=== PATIENT | female | born 1950 | race Caucasian/White ===

== ENCOUNTER 2019-12-09 11:00 | Outpatient (RCR) | payer MEDICARE, OTHER, SELFPAY ==
[2019-10-02 10:58] VITALS: BMI 35.1
[2019-10-02 11:01] VITALS: BMI 35.1
[2019-12-09 11:02] VITALS: BMI 35.1
[2019-12-09 11:03] VITALS: BMI 35.1
== END 2019-12-29 23:59 | disposition home or self-care (01) ==
LOC: ANHDMC 11:00
PROVIDERS: Referring Provider Internal Medicine Cardiovascular Disease
DX: E11.65 Type 2 diabetes mellitus with hyperglycemia (principal); E66.9 Obesity, unspecified; Z71.89 Other specified counseling; Z71.3 Dietary counseling and surveillance
CPT/HCPCS: 97802; 97803; G0108

== ENCOUNTER 2020-01-15 09:15 | Outpatient (RCR) | payer MEDICARE, OTHER, SELFPAY | END 2020-01-15 16:23 | disposition home or self-care (01) | LOC: ANHDMC 09:15 | PROVIDERS: Referring Provider Internal Medicine Cardiovascular Disease; Visit Provider Nurse Practitioner | DX: E11.65 Type 2 diabetes mellitus with hyperglycemia (principal); Z71.89 Other specified counseling | CPT/HCPCS: G0108 ==

== ENCOUNTER 2020-03-16 13:00 | Outpatient (RCR) | payer MEDICARE, OTHER, SELFPAY | END 2020-03-16 13:52 | disposition home or self-care (01) | LOC: ANHDMC 13:00 | PROVIDERS: Referring Provider Internal Medicine Cardiovascular Disease; Visit Provider Nurse Practitioner | DX: E11.65 Type 2 diabetes mellitus with hyperglycemia (principal); E78.5 Hyperlipidemia, unspecified; E66.9 Obesity, unspecified; Z71.89 Other specified counseling | CPT/HCPCS: G0108 ==

== ENCOUNTER 2020-05-18 12:47 | Outpatient (CLI) | payer MEDICARE, OTHER, SELFPAY ==
--- NOTE | ~2020-05-18 | MM_ITS ---
EXAMINATION: MM screening fermin BI w jaime HISTORY: Screening mammogram TECHNIQUE: Craniocaudal and mediolateral oblique 3-D tomosynthesis images were obtained and synthetic 2-D images were generated. CAD analysis was submitted and interpreted. COMPARISON: No prior mammogram is available for comparison at this institution. BREAST PARENCHYMAL COMPOSITION: There are scattered areas of fibroglandular density. FINDINGS: There are scattered bilateral benign calcifications. There is no evidence of suspicious mas s, calcification, or architectural distortion to suggest malignancy in either breast. IMPRESSION: 1. No mammographic evidence of malignancy. 2. Recommend routine screening mammography in one year. BI-RADS Category 2: Benign finding(s). Reviewed, dictated and finalized at location B. 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
== END 2020-05-18 12:48 | disposition home or self-care (01) ==
LOC: CHSIMG 12:53
PROVIDERS: PCP Family Medicine; Visit Provider Family Medicine
DX: Z12.31 Encounter for screening mammogram for malignant neoplasm of breast (principal)
CPT/HCPCS: 77063; 77067

== ENCOUNTER 2020-11-10 16:04 | Outpatient (CLI) | payer MEDICARE, OTHER, SELFPAY ==
--- NOTE | ~2020-11-10 | XR_ITS ---
EXAMINATION: XR hand LT min 3V, XR wrist RT min 3V, XR wrist LT min 3V, XR hand RT min 3V DATE: 11/10/2020 16:35 INDICATION: 3 months of pain and swelling. TECHNIQUE: 1. Posteroanterior, ulnar deviation, oblique, and lateral views of the left wrist were obtained. 2. Dorsal palmar, oblique and lateral views of the left hand were obtained. 3. Posteroanterior, ulnar deviation, oblique, and lateral views of the right wrist were obtained. 2. Dorsal palmar, oblique and lateral views of the right hand were obtained. COMPARISON: None. FINDINGS: Alignment of the lateral hands and wrists is normal. No fracture identified. There are couple surgic al clips at the palmar aspect of the right hand at the level of the mid to distal fourth metacarpal w hich may be related to reported cyst removal. Polyarticular osteoarthritis, severe at the right and m oderate at the left first carpal metacarpal joints, mild at the right triscaphe joint and minimal at a few bilateral metacarpophalangeal and interphalangeal joints. No erosions to suggest inflammatory a rthritis. Soft tissues are unremarkable. IMPRESSION: 1. 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 Reviewed, dictated and finalized at location A. IMPRESSION: 1. 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 IMPRESSION: 1. 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 IMPRESSION: 1. 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
== END 2020-11-10 16:05 | disposition home or self-care (01) ==
LOC: ANHIMG 16:08
PROVIDERS: PCP Family Medicine; Visit Provider Plastic Surgery
DX: M79.89 Other specified soft tissue disorders (principal); M19.042 Primary osteoarthritis, left hand; M19.041 Primary osteoarthritis, right hand; M18.0 Bilateral primary osteoarthritis of first carpometacarpal joints; M19.032 Primary osteoarthritis, left wrist
CPT/HCPCS: 73110; 73130

== ENCOUNTER 2021-05-20 07:50 | Outpatient (CLI) | payer MEDICARE, OTHER, SELFPAY ==
--- NOTE | ~2021-05-20 | MM_ITS ---
EXAMINATION: MM screening fermin BI w jaime HISTORY: Screening mammogram TECHNIQUE: Craniocaudal and mediolateral oblique 3-D tomosynthesis images were obtained and synthetic 2-D images were generated. CAD analysis was submitted and interpreted. COMPARISON: 05/18/2020 BREAST PARENCHYMAL COMPOSITION: There are scattered areas of fibroglandular density. FINDINGS: Scattered benign-appearing calcifications are present. There is no evidence of suspicious m ass, calcification, or architectural distortion to suggest malignancy in either breast. There has bee n no suspicious interval change. IMPRESSION: 1. No mammographic evidence of malignancy. 2. Recommend routine screening mammography in one year. BI-RADS Category 2: Benign finding(s). Reviewed, dictated and finalized at location A. 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
== END 2021-05-20 07:51 | disposition home or self-care (01) ==
LOC: CHSIMG 07:52
PROVIDERS: PCP Family Medicine; Visit Provider Family Medicine
DX: Z12.31 Encounter for screening mammogram for malignant neoplasm of breast (principal)
CPT/HCPCS: 77063; 77067

== ENCOUNTER 2022-04-25 08:33 | Outpatient (RCR) | payer MEDICARE, OTHER, SELFPAY ==
--- NOTE | 2022-04-25 09:11 | PTOPEVAL1 ---
Assessment and note entered by Corinne Gonzalez DPT Evaluation Information Assessment Status Evaluation Diagnosis L shoulder pain, balance Onset 03/30/2022 Subjective Information Pt reports that about 6 months ago, she went to the doctor due to pain in her left shoulder with insidious onset. Pt reports increased pain when reaching behind her and hifting heavier weights. She notes pain on the lateral portion of her left shoulder. She reports occasional numbness/tingling in her hand but knows it is unrelated as she has had it in the past. She reports that pain is not constant and is achy when it happens. Sleep is unaffected. In regards to her balance, she has had about 4 falls in the last year. When remembering these falls, she notes they happened due to decrease foot clearance, especially on the R foot. She reports some minor injuries but did fall onto her face once. She reports one step to get into the house. Reports no ADs at home. She reports she is still able to do everything she needs to do at home, but is more careful. Reported Pain Level Pain Score 0: Self Report Assessment PT Clinical Summary Pt presents to PT with L shoulder pain and reports of increased unsteadiness and demonstrates decreased UE/LE strength, decreased shoulder mobility, impaired foot clearance, impaired dynamic balance, and antalgic gait. In regards to her shoulder, she presents with signs and symptoms consistent with biceps involvement or impingement syndrome. 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 She was provided with an HEP focused on improving strength, mobility, and balance within her tolerance. She will benefit from skilled PT to facilitate symptom relief, decrease risk for falls, improve the aforementioned impairments, and return to functional and recreational activities. Plan of Care Interventions Gait Training,Hot Pack/Cold Pack,Manual Therapy, Neuro Re-education,Patient/Caregiver Educati, Therapeutic Activities,Therapeutic Exercise PT Services Indicated Yes Treatment Frequency and 2x week for 12 visits Duration These treatments will address the objective and functional deficits as defined above. The patient will be advanced safely and appropriately in order for the pat
== END 2022-05-24 23:59 | disposition home or self-care (01) ==
LOC: CHSPT 08:33
PROVIDERS: Visit Provider Nurse Practitioner
DX: M25.512 Pain in left shoulder (principal); M54.10 Radiculopathy, site unspecified
CPT/HCPCS: 97014; 97110; 97112; 97140; 97161; 97530; G0283

== ENCOUNTER 2022-10-03 07:49 | Outpatient (CLI) | payer MEDICARE, OTHER, SELFPAY ==
--- NOTE | ~2022-10-03 | MM_ITS ---
EXAMINATION: MM screening fermin BI w jaime HISTORY: Screening mammogram TECHNIQUE: Craniocaudal and mediolateral oblique 3-D tomosynthesis images were obtained and synthetic 2-D images were generated. CAD analysis was submitted and interpreted. COMPARISON: 05/20/2021, 05/18/2020 BREAST PARENCHYMAL COMPOSITION: There are scattered areas of fibroglandular density. FINDINGS: Scattered benign-appearing calcifications are present. No suspicious mass, calcification, o r architectural distortion are identified in either breast to suggest malignancy. There has been no s uspicious interval change. IMPRESSION: 1. No mammographic evidence of malignancy. 2. Recommend routine screening mammography in one year. BI-RADS Category 2: Benign finding(s). Reviewed, dictated and finalized at location A.
== END 2022-10-03 07:50 | disposition home or self-care (01) ==
LOC: CHSIMG 07:51
PROVIDERS: PCP Family Medicine; Visit Provider Family Medicine
DX: Z12.31 Encounter for screening mammogram for malignant neoplasm of breast (principal)
CPT/HCPCS: 77063; 77067

== ENCOUNTER 2023-04-13 13:08 | Outpatient (RCR) | payer MEDICARE, OTHER, SELFPAY ==
[2023-04-13 13:03] VITALS: BP_SYST 90
--- NOTE | 2023-04-13 14:04 | OPREHPOC ---
Outpatient Therapy Plan of Care This is a Multidisciplinary Plan of Care that may contain components documented by all disciplines (PT, OT, and ST.) PT Problem 1 PT Problem #1 Knowledge Deficit PT Goal 1 Goal indpendent and compliant with HEP Target Visit 6 PT Problem 2 PT Problem #2 Pain PT Goal 1 Goal decrease pain at worst to 5/10 or less Target Visit 12 PT Problem 3 PT Problem #3 Impaired Range of Motion PT Goal 1 Goal 1. improve passive L shoulder flexion to 150 degrees or better 2. improve passive L shoulder abduction to 120 degrees or better 3. improve active L shoulder flexion to 145 degrees or better 4. improve active L shoulder abduction to 110 degrees or better 5. L shoulder active ER to improve to 60 degrees in 90 degrees abduction 6. L shoulder active IR to improve to 50 degrees in 90 degrees abduction Target Visit 12 PT Problem 4 PT Problem #4 Impaired Functional Mobil PT Goal 1 Goal 1. QD to display less maria a 40% functional deficits 2. functional L shoulder reach behind head to the midline middle cervical spine 3. functional L shoulder reach behind back to the midline belt line. 4. patient to lift 5lbs overhead to tall shelf with the L UE Target Visit 12
--- NOTE | 2023-04-13 14:04 | PTOPEVAL1 ---
Assessment and note entered by JT File, PT Evaluation Information Assessment Status Evaluation Diagnosis SLAP tear of the L shoulder, L RTC tear Onset 04/10/23 Subjective Information patient reports she has severe pain with certain movements of the L shoulder. she reports at times it will feel like it is coming out of socket. she reports she cannot reach behind her back. she reports she has had this for a few years. she reports it has been more flared up and recently saw a specialist. she reports she has had an MRI of the labral tear and RTC tear. she reports she did fall the day after she saw the MD. she reports she also fell the other night. she reports when she falls she gets off balance and cant correct. she reports she will feel like she catches her toes on things. she reports she does have neuropathy in her feet. Reported Pain Level Pain Score 0: Self Report Assessment PT Clinical Summary mrs. hutchins is a 72 yo woman who presents to skilled PT for evaluation and treatment of L shoulder pain. she presents with decreased L shoulder passive and active rom, L shoulder weakness, pain, and decreased ability to perform functional activities. her signs and symptoms are consistent with RTC pathology and labral damage. she would benefit from continued skilled PT to address her objective/functional deficits to return to prior level functional activity performance and quality of life. Plan of Care Interventions Electrical Stimulation,Hot Pack/Cold Pack,Manual Therapy,Neuro Re-education,Patient/Caregiver Educati,Therapeutic Activities,Therapeutic Exercise PT Services Indicated Yes Treatment Frequency and 3x weekly for 12 vists Duration These treatments will address the objective and functional deficits as defined above. The patient will be advanced safely and appropriately in order for the patient to progress towards his/her prior level of function. Additional exercises will be introduced and as well as a comprehensive home exercise program upon discharge, if needed, ?to ensure carryover of functional gains achieved in the clinic. This treatment plan has been reviewed and agreement upon by the patient.
== END 2023-04-13 20:00 | disposition home or self-care (01) ==
LOC: CHSPT 13:08
PROVIDERS: PCP Nurse Practitioner
DX: S43.432D Superior glenoid labrum lesion of left shoulder, subsequent encounter (principal); S46.012D Strain of muscle(s) and tendon(s) of the rotator cuff of left shoulder, subsequent encounter
CPT/HCPCS: 97014; 97110; 97161; G0283

== ENCOUNTER 2024-01-09 13:46 | Outpatient (CLI) | payer MEDICARE, OTHER, SELFPAY ==
--- NOTE | ~2024-01-09 | MM_ITS ---
EXAMINATION: MM screening fermin BI w jaime HISTORY: Screening TECHNIQUE: Craniocaudal and mediolateral oblique 3-D tomosynthesis images were obtained and synthetic 2-D images were generated. CAD analysis was submitted and interpreted. COMPARISON: Comparison to multiple prior studies sequentially, with oldest reviewed study dated 09/2020. BREAST PARENCHYMAL COMPOSITION: Not dense: There are scattered areas of fibroglandular density. FINDINGS: There is no evidence of suspicious mass, calcification, or architectural distortion to sugg est malignancy in either breast. There has been no suspicious interval change. IMPRESSION: 1. No mammographic evidence of malignancy. 2. Recommend routine screening mammography in one year. BI-RADS Category 1: Negative Reviewed, dictated and finalized at location B.
[2024-01-09 14:15] LABS: Hemoglobin A1C 6.4 % (<5.7)
[2024-01-09 14:36] LABS: Alanine Aminotransferase 25 U/L (14-59); Albumin Level 3.6 g/dL (3.4-5.0); Alkaline Phosphatase 99 U/L (46-116); Anion Gap 8 mmol/L (4-12); Aspartate Amino Transferase 18 U/L (15-37); Bilirubin,Total 0.4 mg/dL (0.00-1.00); Blood Urea Nitrogen 15 mg/dL (7-18); Calcium 9.7 mg/dL (8.5-10.1); Carbon Dioxide 32 mmol/L (21-32); Chloride 103 mmol/L (98-108); Cholesterol 147 mg/dL (0-200); Estimated Glomerular Filt Rate > 60; Glucose 125 mg/dL (70-99); HDL Direct 61 mg/dL (40-60); LDL Cholesterol Calculated 54 mg/dL (<130); Osmolality Calculated 297 mOsm/kg (285-295); Potassium 4.3 mmol/L (3.5-5.1); Sodium 143 mmol/L (136-145); Total Protein 7.2 g/dL (6.4-8.2); Triglycerides 160 mg/dL (0-150)
[2024-01-12 07:09] LABS: Vitamin D 25 Hydroxy 40 ng/mL (30-100)
== END 2024-01-09 13:47 | disposition home or self-care (01) ==
LOC: CHSIMG 13:48
PROVIDERS: PCP Nurse Practitioner; Visit Provider Nurse Practitioner
DX: E11.9 Type 2 diabetes mellitus without complications (principal); E78.2 Mixed hyperlipidemia; E55.9 Vitamin D deficiency, unspecified; Z12.31 Encounter for screening mammogram for malignant neoplasm of breast
CPT/HCPCS: 36415; 77063; 77067; 80053; 80061; 82043; 82306; 83036

== ENCOUNTER 2024-01-10 13:23 | Outpatient (CLI) | payer MEDICARE, SELFPAY ==
[2024-01-10 13:50] LABS: Creatinine Urine 104.75 mg/dL (40-278); MALB Creatinine Ratio 12.4 mg/g (0-30); Microalbumin Urine Random < 13.0 mg/L
== END 2024-01-10 13:24 | disposition home or self-care (01) ==
LOC: CHSLAB 13:27
PROVIDERS: PCP Nurse Practitioner; Visit Provider Nurse Practitioner
DX: E11.9 Type 2 diabetes mellitus without complications (principal); E78.2 Mixed hyperlipidemia; E55.9 Vitamin D deficiency, unspecified
CPT/HCPCS: 82043

== ENCOUNTER 2025-03-19 12:40 | Outpatient (CLI) | payer MEDICARE, OTHER, SELFPAY ==
--- NOTE | ~2025-03-19 | MM_ITS ---
EXAMINATION: MM screening [facility] w jaime HISTORY: Screening TECHNIQUE: Craniocaudal and mediolateral oblique 3-D tomosynthesis images were obtained and synthetic 2-D images were generated. CAD analysis was submitted and interpreted. COMPARISON: Comparison to multiple prior studies sequentially, with oldest reviewed study dated 05/18/2020. BREAST PARENCHYMAL COMPOSITION: Not dense: There are scattered areas of fibroglandular density. FINDINGS: There is no evidence of suspicious mass, calcification, or architectural distortion to suggest malignancy in either breast. There has been no suspicious interval change. IMPRESSION: 1. No mammographic evidence of malignancy. 2. Recommend routine screening mammography in one year. BI-RADS Category 1: Negative Reviewed, dictated and finalized at location O. WORKER
--- OUTSIDE RECORDS SUMMARY | 2025-03-19 19:36 | XMS_ITS | Clinical Summary ---
Author Organization [facility] Address [facility] [place] [address] Care Team Providers Care Justice Professor Name Role Phone Justen Berrios MD Unavailable Sharon Li MD Primary Care Provider + Allergies No known active allergies Medications metFORMIN (GLUCOPHAGE) 1,000 mg tablet 9 Active amLODIPine (NORVASC) 5 mg tablet 9 Active carvedilol (COREG) 6.25 mg tablet 9 Active zolpidem (AMBIEN) 10 mg tabletIndication s:Sleep-Onset Insomnia Take 1 tablet (10 mg total) by mouth nightly 0 9 Active valsartan-hydroc hlorothiazide (DIOVAN-HCT) 320-25 mg per tablet Take 1 tablet by mouth daily Active potassium chloride ER (KLOR-CON,K-DUR) 10 mEq CR tablet Take 1 tablet/capsule (10 mEq total) by mouth 2 (two) times a day Active atorvastatin (LIPITOR) 40 mg tablet Take 1 tablet (40 mg total) by mouth daily Active cholecalciferol (VITAMIN D-3) 1,000 unit Take 1 tablet/capsule (1,000 Units total) by mouth daily Active aspirin 81 mg tablet Take 1 tablet (81 mg total) by mouth daily Active Trulicity 1.5 mg/0.5 mL pen injector 4 Active Xiidra 5 % dropperette 4 Active mesalamine (LIALDA) 1.2 gram EC tabletIndication s:Ulcerative Colitis Take 1 tablet (1.2 g total) by mouth daily with breakfast Active semaglutide (Wegovy) 0.25 mg/0.5 mL auto-injector Inject 0.5 mL (0.25 mg total) under the skin Active docosahexaenoic acid/epa (FISH OIL ORAL) Take by mouth Active Active Problems Problem Noted Date Diagnosed Date Left atrial enlargement 03/04/2019 Coronary artery disease invo lving [place] coronary artery of [place] heart without angina pectoris 07/08/2018 Palpitations 07/08/2018 Hypertension associated with diabetes 07/08/2018 Obesity due to excess calories with serious marie rbidity 07/08/2018 Mixed diabetic hyperlipidemi a associated with type 2 diabetes mellitus (CMS/HCC) 07/08/2018 Medical History Medical History Date Comments Hypertension Hyperlipidemia Diabetes mellitus Coronary artery disease Family History Medical History Relation Name Comments No Known Problems Father Multiple sclerosis Sister Relation Name Status Comments Father Alive Sister Alive Social History Tobacco Use Types Packs/Day Years Used Date Smoking Tobacco: Never Passive Smoke Exposure: Past Tobacco Cessation:Counseling Given: Not Answered Comments Unknown Sex and Gender Information Value Date Recorded Sex Assigned at Not on file Legal Sex Female 1:58 PM PRESS FEEDER Gender Identity Not on file Sexual Orientation Not on file Last Filed Vital Signs Vital Sign Reading Time Taken Comments Blood Pressure 129/75 05/05/2024 7:32 AM PRESS FEEDER Pulse 85 05/05/2024 7:32 AM PRESS FEEDER Temperature - - Respiratory Rate 18 07/08/2018 8:31 AM PRESS FEEDER Oxygen Saturation 97% 05/05/2024 7:32 AM PRESS FEEDER Inhaled Oxygen Concentration - - Weight 117.5 kg (259 lb) 05/05/2024 7:32 AM PRESS FEEDER Height 165.1 cm (5' 5) 05/05/2024 7:32 AM PRESS FEEDER Body Mass Index 43.1 05/05/2024 7:32 AM PRESS FEEDER Plan of Treatment Health Maintenance Due Date Last Done Comments Albumin Creatinine Ratio, Urine 1950 Colon Cancer Screening-Colonoscopy 1950 Depression Screening 1950 Hemoglobin A1C 1952 Hepatitis C Screening 1950 Osteoporosis Screening-Bone Density Scan 1950 eGFR 1950 Dilated Eye Exam 1950 Foot Exam 1952 Hepatitis B Screening 1970 Pneumococcal vaccine 65+ (1 of 2 - PCV) 1971 Zoster Vaccine (2 of 3) 08/13/2012 06/18/2012 Well Visit 65+ 2017 Fall Risk Assessment 07/08/2019 07/08/2018 Breast Cancer Screening-Mammogram 12/31/2019 019, 12/30/2018 Lipid Panel 12/29/2022 12/29/2021, 12/12, 07/08/2018 Influenza Vaccine (#1) 2025 02/22/2018, 2016 DTaP/Tdap/Td Vaccine (2 - Td or Tdap) 10/04/2027 Procedures Procedure Name Priority Date/Time Associated Diagnosis Comments POCT LIPID PANEL Routine 12/29/2021 10:3 2 AM CDT Coronary artery disease involving [place] coronary artery of [place] heart without angina pectoris from Last 3 Months or Most Recently Relevant to Health Maintenance Results * POCT lipid panel (12/29/2021 10:32 AM CDT) Cholesterol, POC 142 mg/dL Comment:GLU = 123 HDL, POC 57 mg/dL Triglycerides, POC 127 mg/dL LDL Cholesterol POC 60 mg/dL Chol/HDL Ratio, POC 2.5 Non-HDL Cholesterol, POC 85 mg/dL Cholesterol Total, POC 142 mg/dL Capillary blood 12/29/2021 1 0:32 AM CDT David Kapoor MD POINT OF CARE TEST ORDER SUSAN Final Result from Last 3 Months or Most Recently Relevant to Health Maintenance Insurance MEDICARE FOR LIFE MEDICARE FOR LIFE Care Teams Justice Professor Relationship Specialty Start Date End Date Sharon Li MD [address] [place] [address] PCP - General Family Medicine 05/05/24 Justen Berrios MD [address] [place] [address] Family Medicine 06/09/19
--- OUTSIDE RECORDS SUMMARY | 2025-03-19 19:36 | XMS_ITS | Clinical Summary ---
Author Organization [facility] Address [facility] [place] [address] Care Team Providers Care Marketing Account Executive Name Role Phone Vlad Ellington MD Unavailable [phone] Sharon Li MD Primary Care Provider [phone] Allergies No known active allergies Medications hydrocodone-acet aminophen 5-325 MG tablet 03/21/2018 Active zolpidem 10 MG tablet Take 10 mg by mouth nightly. 1 03/26/2018 Active metFORMIN 1000 MG tablet Take 1,000 mg by mouth 2 (two) times daily. 03/19/2018 Active valsartan-hydroc hlorothiazide 320-25 MG tablet Take 1 tablet by mouth daily. 12/19/2017 Active KLOR-CON 10 10 MEQ Tab CR tablet Take 10 mEq by mouth 2 (two) times daily. 02/14/2018 Active amlodipine 5 MG tablet Take 10 mg by mouth daily. 03/19/2018 Active loteprednol 0.5 % ophthalmic suspension 1 drop 4 (four) times daily. Active atorvastatin 40 MG tablet Take 1 tablet (40 mg total) by mouth daily. 90 tablet 3 05/17/2018 Active carvedilol 3.125 MG tablet Take 1 tablet (3.125 mg total) by mouth 2 (two) times daily. 180 tablet 3 05/21/2018 Active Active Problems Problem Noted Date Diagnosed Date Frequent falls 11/09/2021 Left shoulder pain 11/09/2021 Hyperlipemia, mixed 08/22/2021 Radicular pain of left lower extremity Type 2 diabetes mellitus 07/08/2018 Coronary artery calcification seen on CAT scan 0 05/17/2018 Social History Tobacco Use Types Packs/Day Years Used Date Smoking Tobacco: Never Smokeless Tobacco: Never Alcohol Use Standard Drinks/Week Comments No 0 (1 standard drink = 0.6 oz pur e alcohol) AUDIT-C Answer Date Recorded Frequency of Alcohol Consumption Never 04/24/2018 Average Number of Drinks Not on file Frequency of Binge Drinking Not on file 04/13 Comments Unknown Sex and Gender Information Value Date Recorded Sex Assigned at Not on file Legal Sex Female 4:58 PM CDT Gender Identity Not on file Sexual Orientation Not on file Last Filed Vital Signs Vital Sign Reading Time Taken Comments Blood Pressure 156/66 05/17/2018 11:00 AM SURVEY TECHNOLOGIST 140/80 left arm Pulse 89 05/17/2018 11:00 AM SURVEY TECHNOLOGIST Temperature 36.8 C (98.2 F) 05/17/2018 11:00 AM SURVEY TECHNOLOGIST Respiratory Rate 18 05/17/2018 11:0 0 AM SURVEY TECHNOLOGIST Oxygen Saturation 98% 05/17/2018 11: 00 AM SURVEY TECHNOLOGIST Inhaled Oxygen Concentration - - Weight 121.5 kg (267 lb 13. 7 oz) 05/17/2018 11:00 AM SURVEY TECHNOLOGIST Height 164.5 cm (5' 4.76) 05/17/2018 1 1:00 AM SURVEY TECHNOLOGIST Body Mass Index 44.9 05/17/2018 11:00 AM SURVEY TECHNOLOGIST Plan of Treatment Health Maintenance Due Date Last Done Comments Colorectal Cancer Screening Colonoscopy (10 Years) 1952 Kidney Health Evaluation 1952 Hemoglobin A1C 1952 Diabetes: Retinopathy Eye Exam 1970 Hepatitis C 1970 Zoster Vaccines (2 of 3) 08/13/2012 06/18/2012 Pneumococcal Vaccine: 50+ Years (2 of 2 - PCV) 04/26/2016 04/26/2015 Annual Medicare Wellness Visit 2017 Dexa Scan (General) 2017 Mammogram Screening 12/30/2020 12/30/2018 Lipid Panel 12/29/2022 12/29/2021 COVID-19 Vaccine ( season) 2025 08/20/2021, 02/05/2021, 07/23/2020, Additional history exists Influenza Adult (#1) 2025 02/22/2018, 02/15/2017, 04/05/2016, Additional history exists RSV Immunization or 60+ Years (1 - 1-dose 75+ series) 2027 DTaP, Tdap and Td Vaccines (2 - Td or Tdap) 10/04/2027 10/03/2017 Hepatitis A Vaccines Aged Out No long er eligible based on patient's age to complete this topic Meningococcal B Vaccine Aged Out No l onger eligible based on patient's age to complete this topic Meningococcal Vaccine Aged Out No selena justa eligible based on patient's age to complete this topic RSV Immunizations Under 20 Months Aged Out No longer eligible based on patient's age to complete this topic Procedures Procedure Name Priority Date/Time Associated Diagnosis Comments MG SCREENING W BING RODERICK DIGI Routine 12/30/2018 6:20 AM CDT Visit for screening mammogram from Last 3 Months or Most Recently Relevant to Health Maintenance Results * MG SCREENING W BING RODERICK DIGI (12/30/2018 6:20 AM CDT) Anatomical Region Laterality Modality Breast Bilateral Mammography 12/30/2018 7:38 AM CDT Impressions 12/30/2018 7:51 AM CDT IMPRESSION: No interval features to suggest malignancy. In the absence of clinical symptoms, return for annual screening due in one year. RECOMMENDATION: Routine Screening, BILATERAL in 1 year ASSESSMENT: BI-RADS 2 - BENIGN FINDING(S) Interpreted By: Brigid Silva MD, 12/30/2018 7:38 AM Narrative 12/30/2018 7:51 AM CDT EXAMINATION: BILATERAL SCREENING MAMMOGRAPHY CLINICAL INDICATION: 68 years of age female routine screening. TECHNIQUE: Digital CC & MLO views. Tomosynthesis imaging acquisition Study read with the assistance of a computer-aided detection system. COMPARISON: Screening mammogram(s) 09/28, 12/27 TISSUE DENSITY: There are scattered areas of fibroglandular density. Presence of scattered but nodular breast tissue pattern slightly decreases mammographic sensitivity. FINDINGS: Some scattered and multiple stable focal benign morphology calcifications. Stable subcentimeter partially obscured nodules unchanged given differences in technique compared to studies dating back April 2008. Given longevity with stability, this favors findings of low malignant potential. No suspicious grouping of microcalcifications, architectural distortion, or new dominant suspicious nodule 3 dimensionally demonstrated in either breast. Justen Berrios MD MAMMO Final Result from Last 3 Months or Most Recently Relevant to Health Maintenance Insurance MEDICARE [facility] Therapeutic Monitoring Services [employer] Care Teams Marketing Account Executive Relationship Specialty Start Date End Date Sharon Li MD [address] [place] [id number] PCP - General FAMILY PRACTICE 04/30/24 Vlad Ellington MD [address] [place] [address] Consulting Physician CARDIOVASCULAR DISEASE 05/01/18
--- OUTSIDE RECORDS SUMMARY | 2025-03-19 19:36 | XMS_ITS | Patient Health Record ---
Author Organization [facility] Address [address] [place], [place] [id number] Care Team Providers Care Outdoor Emergency Care Technician Name Role Phone DANIELLE Kraus Unavailable [phone] Fran Hunter Unavailable Unavailable Reason For Referral No Information Medications Medication SIG (Take, Route, Frequency, Duration) Notes Start Date End Date Status Medrol Dosepak ORAL Medrol DosepakOr iginal MedicationMedrol Dosepak *Reorder from [employer] for eRx and Interaction Alerts* 05/02/2021 Active Social History Social History Additional Details Category Social Info Options Details Migrated Social History Migrated Social History History of tobacco use : , Smoking Status : Never used tobacco Plan Of Treatment No Information Insurance Providers Payer Name Payer Address Payer Phone Subscriber Number Group Number Insured Name Patient Relationship to Insured Coverage Start Date Coverage End Date Medicare Part B [place] [address] [place] [address] [id number] UNRULY MONTGOMERY Self - patient is the insured for Life ([employer]) [address] [place], [place] [id number] VALENTINA MONTGOMERY Spouse - patient is the spouse of the insured [facility] [address] [place], [place] [id number] UNRULY MONTGOMERY Self - patient is the insured
== END 2025-03-19 12:41 | disposition home or self-care (01) ==
PROVIDERS: Visit Provider Nurse Practitioner
DX: Z12.31 Encounter for screening mammogram for malignant neoplasm of breast (principal)
CPT/HCPCS: 77063; 77067